=== PATIENT | female | born 1950 | race Caucasian/White ===

== ENCOUNTER → 2016-07-19 | Outpatient (CLI) | payer MEDICARE ==
--- NOTE | 2016-07-19 14:38 | RAD ---
Indication wheezing. PA and lateral views of the chest were obtained. No prior plain film imaging of the chest Heart size is at the upper limits of normal. There is no congestive heart failure. There is no focal infiltrate. There is some mild right hilar fullness which is likely all vascular in nature. If clinically warranted additional evaluation could be obtained with CT. No significant pleural fluid is seen. There is no pneumothorax. IMPRESSION: No acute finding apparent in the chest
== END | disposition home or self-care (01) ==
LOC: DXRADRC 14:01
PROVIDERS: ATTEND Nurse Practitioner Family
DX: R06.2 Wheezing (principal)
CPT/HCPCS: 71020

== ENCOUNTER → 2017-01-27 | Outpatient (CLI) | payer MEDICARE ==
--- NOTE | 2017-01-27 16:39 | RAD ---
HAND LEFT 2V, WRIST 2V LEFT Clinical Indication: LEFT WRIST AND HAND PAIN Comparison: None. Hand Findings: No acute fracture or malalignment. 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 Bony mineralization is normal for the patient's age. No significant soft tissue abnormality. No radiopaque foreign body. Wrist Findings: No acute fracture or malalignment. Mild first carpometacarpal arthrosis. Bony mineralization is normal for the patient's age. No significant soft tissue abnormality. No radiopaque foreign body. IMPRESSION: 1. No acute fracture or malalignment. 2. 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 3. Mild first carpometacarpal arthrosis.
== END | disposition home or self-care (01) ==
LOC: DXRAD 10:13
PROVIDERS: ATTEND Nurse Practitioner Family
DX: M19.042 Primary osteoarthritis, left hand (principal)
CPT/HCPCS: 73100; 73120

== ENCOUNTER → 2020-04-29 | Outpatient (CLI) | payer MEDICARE ==
--- NOTE | 2020-04-29 10:34 | RAD ---
Chest radiograph 04/29/2020 10:24 AM INDICATION: Chest pain COMPARISON: 07/19/2016 TECHNIQUE: Frontal and lateral views of the chest are provided. FINDINGS: The cardiomediastinal silhouette is within normal limits. There are no pleural effusions. There is no pulmonary vascular congestion. There is no pneumothorax. The lungs are clear. There is scarring in the left hilar region. No significant osseous abnormality is identified. IMPRESSION: No acute cardiopulmonary process. Electronically signed by: Aisha Rivera MD (04/29/2020 10:32 AM) [id number]
== END ==
LOC: PMG 10:04
PROVIDERS: ATTEND Physician Assistant Medical
DX: R06.02 Shortness of breath (principal)
CPT/HCPCS: 71046